=== PATIENT | male | born 1945 | race Caucasian/White ===

== ENCOUNTER 2016-10-25 08:51 | Emergency (ER) | payer MEDICARE ==
[~2016-10-25] VITALS: Ht 177.8 cm; Wt 88.6 kg
[~2016-10-25 08:51] MED LIST: NORCO 325 MG-51 TAB PO; PERCOCET 325 MG1 TA2 PO; RELPAX 40MG TAB40 MG PO
[2016-10-25 08:54] VITALS: BP 155/74; PULSE 57; TEMP 97.1
[2016-10-25] MEDS ORDERED: ROXICODONE15 MG PO (08:58)
[2016-10-25] MEDS ORDERED: CLINORIL 2200 MG/TAB PO (08:58)
[2016-10-25] MEDS ORDERED: ZOFRAN ODT4 MG PO (10:38)
== END 2016-10-25 11:25 | disposition home or self-care (01) ==
LOC: COL.ER 08:51
DX: G44.009 Cluster headache syndrome, unspecified, not intractable (principal)
CPT/HCPCS: J1885; J2550; J7030

== ENCOUNTER → 2017-10-23 | Outpatient (CLI) | payer MEDICARE ==
[~2017-10-23] MED LIST changes: +CLINORIL 2200 MG/TAB PO; +ROXICODONE15 MG PO; +ZOFRAN ODT4 MG PO
[2017-10-23 18:17] LABS: HIV 1/2 Antibodies Non-Reactive; HIV-1p24 Antigen Non-Reactive
== END ==
LOC: COL.LAB 17:15
PROVIDERS: Orthopaedic Surgery
DX: Z01.812 Encounter for preprocedural laboratory examination (principal); M17.11 Unilateral primary osteoarthritis, right knee

== ENCOUNTER 2017-11-05 10:12 | Emergency (ER) | payer MEDICARE ==
[~2017-11-05] VITALS: Ht 177.8 cm; Wt 88.6 kg
[2017-11-05 10:20] VITALS: TEMP 98.3
[2017-11-05] MEDS ORDERED: IMITREX100 MG PO (11:59)
[2017-11-05] MEDS ORDERED: ISOPTIN SR240 MG PO (11:59)
[2017-11-05 12:42] VITALS: BP 135/75; PULSE 68
== END 2017-11-05 12:43 | disposition home or self-care (01) ==
LOC: COL.ER 10:12
DX: G89.18 Other acute postprocedural pain (principal); M25.561 Pain in right knee; Z98.890 Other specified postprocedural states
CPT/HCPCS: J1885; J2270; J2550

== ENCOUNTER → 2018-01-01 | Outpatient (CLI) | payer MEDICARE ==
[~2018-01-01] MED LIST changes: +IMITREX100 MG PO; +ISOPTIN SR240 MG PO
[2018-01-01 11:19] LABS: BASO # 0.1 (0.0-0.2); BASO % 1.2 % (0.0-2.0); EOS # 0.1 (0.0-0.7); EOS % 2.6 % (0-4.0); GRAN # 2.3 (1.4-6.5); GRAN % 55.3 % (42.2-75.2); HEMATOCRIT 39.4 % (42.0-52.0); LYMPH # 1.3 (1.2-3.4); LYMPH % 31.2 % (20.0-51.0); MEAN CELL VOLUME 88 fl (80.0-100.0); MEAN CORPUSCULAR HEMOGLOBIN 29 pg (27.0-31.0); MEAN CORPUSCULAR HGB CONC 33 g/dl (33.0-37.0); MEAN PLATELET VOLUME 8.9 fl (7.4-10.4); MONO # 0.4 (0.1-0.6); MONO % 9.5 % (1.7-9.3); PLATELET COUNT 233 K/mm3 (130-400); REDCELL DISTRIBUTION WIDTH-CV 13.4 % (11.5-14.5)
[2018-01-01 11:45] LABS: ERYTHROCYTE SEDIMENTATION RATE 6 mm/hr (0-30)
== END ==
LOC: COL.LAB 10:55
PROVIDERS: Orthopaedic Surgery
DX: Z51.89 Encounter for other specified aftercare (principal)

== ENCOUNTER → 2019-09-22 | Outpatient (CLI) | payer MEDICARE | LOC: COL.RAD 08:17 | DX: Z13.6 Encounter for screening for cardiovascular disorders (principal); I70.0 Atherosclerosis of aorta ==